=== PATIENT | female | born 1985 | race Two or more races ===

== ENCOUNTER 2017-02-08 12:45 | Emergency (ER) | payer OTHER ==
[~2017-02-08] VITALS: Ht 162.6 cm; Wt 49.9 kg
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
[2017-02-08] MEDS ORDERED: ONDANSETRON HCL/PF 4 MG/2 ML VIAL ONE (12:46)
[2017-02-08] MEDS ORDERED: HYDROMORPHONE 1 MG/1 ML DISP.SYRIN ONE ×2 (12:46→13:27)
--- NOTE | 2017-02-08 12:50 | NUR ---
IV STARTED L AC 20G. MEDICATIONS GIVEN ORDERED.
[2017-02-08] MEDS ORDERED: HYDROMORPHONE 1 MG/1 ML DISP.SYRIN IV ONE ×2 (13:00→13:30)
--- NOTE | 2017-02-08 13:06 | NUR ---
PT SIGNED WAIVER FOR XRAY
--- NOTE | 2017-02-08 13:37 | NUR ---
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
--- NOTE | 2017-02-08 13:40 | NUR ---
PRERNA ROSAS AT BS.
[2017-02-08] MEDS ORDERED: IV SET PRIMARY PUMP SET 1 EA INFUS.SET MC ONE (13:44)
[2017-02-08] MEDS ORDERED: IV NS 0.9% 1,000 ML ONE (13:44)
[2017-02-08] MEDS ORDERED: PROPOFOL 20 ML IV ONE (13:44)
[2017-02-08] MEDS ORDERED: PROPOFOL 200 MG/20 ML VIAL IV ONE (14:00)
--- NOTE | 2017-02-08 14:06 | NUR ---
PROCEDURE FINISHED. PT PLACED IN SPLINT AND SLING
--- NOTE | 2017-02-08 15:06 | NUR ---
Patient discharged to home in stable condition. Written and verbal after care instructions given. Patient verbalizes understanding of instruction. IV removed. Catheter intact and site benign. Pressure and 4x4 applied to site. No bleeding noted.
[2017-02-08 15:07] VITALS: BP 117/46
== END 2017-02-08 15:08 | disposition home or self-care (01) ==
LOC: ER 12:47
DX: S52.501A Unspecified fracture of the lower end of right radius, initial encounter for closed fracture (principal); S52.101A Unspecified fracture of upper end of right radius, initial encounter for closed fracture; V49.49XA Driver injured in collision with other motor vehicles in traffic accident, initial encounter; Y93.89 Activity, other specified; Y92.89 Other specified places as the place of occurrence of the external cause; Y99.9 Unspecified external cause status
CPT/HCPCS: 72100-TC; 73070-TC; 73100-TC; 73110; A4606; J1170; J2405; J2704; J7030; Z7610